=== PATIENT | female | born 1975 | race Hispanic/Latino ===

== ENCOUNTER 2018-01-09 12:57 | Emergency (ER) | payer SELFPAY ==
[2018-01-09 13:03] VITALS: O2SAT 100
[2018-01-09] MEDS ORDERED: Sodium Chloride 0.9% 1,000 ML IV STA (14:26)
--- NOTE | 2018-01-09 14:27 | ED PDOC ---
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 Patient reports she had frenulumectomy done this morning at 11:30, local anesthetic was used. She states she felt fine after, but developed dizziness [place] and felt the need to sit. Patient lost consciousness and hit head but woke up soon after. She states her symptoms have improved since. Patient reports no sweating, nausea , throat pain, but denies headache, vomiting, chest pain, current dizziness, difficulty breathing or any other medical complaints. She had a small bacteria infection two weeks ago and finished her antibiotics on Saturday. PMD: none provided. Past Medical History Reviewed: Historical Data, Nursing Documentation, Vital Signs Vital Signs: Last Vital Signs Temp 97.4 F L 01/09/18 13:00 Pulse 52 L 01/09/18 13:00 Resp 18 01/09/18 13:00 BP 90/50 L 01/09/18 13:00 Pulse Ox 100 01/09/18 13:00 - Medical History PMH: No Chronic Diseases - Surgical History Surgical History: Tonsillectomy - Family History Family History: States: Unknown Family Hx - Social History Current smoker - smoking cessation education provided: No Ex-Smoker (has not smoked in the last 12 months): No Alcohol: Occasional - Allergies Allergies/Adverse Reactions: Allergies Allergy/AdvReac Type Severity Reaction Status Date / Time No Known Allergies Allergy Verified 01/09/18 12:59 Review of Systems ROS Statement: Except As Marked, All Systems Reviewed And Found Negative Constitutional: Positive for: Sweats ENT: Positive for: Throat Pain Neurological: Positive for: Dizziness, Other (syncope) Physical Exam - Reviewed Nursing Documentation Reviewed: Yes Vital Signs Reviewed: Yes - Physical Exam Appears: Positive for: Non-toxic, No Acute Distress Head Exam: Positive for: ATRAUMATIC, NORMOCEPHALIC Skin: Positive for: Normal Color, Warm, Dry Eye Exam: Positive for: EOMI, Normal appearance, PERRL ENT: Positive for: Normal ENT Inspection Neck: Positive for: Normal, Painless ROM Cardiovascular/Chest: Positive for: Regular Rate, Rhythm. Negative for: Murmur Respiratory: Positive for: Normal Breath Sounds. Negative for: Respiratory Distress Gastrointestinal/Abdominal: Positive for: Normal Exam, Soft Back: Positive for: Normal Inspection Extremity: Positive for: Normal ROM (upper and lower) Neurologic/Psych: Positive for: Alert, foreign exchange trader II-XII, Oriented (x3), Gait (steady) . Negative for: Motor/Sensory Deficits - Laboratory Results Result Diagrams: 01/09/18 14:51 01/09/18 14:51 - ECG O2 Sat by Pulse Oximetry: 100 (RA) Pulse Ox Interpretation: Normal Medical Decision Making Medical Decision Making: Time: 13:31 Initial Impression: Syncopal episode likely due to vasovagal syncope Initial Plan: --CMP --Troponin --CBC with differentials --Glucose --NS --Zofran 4 mg IV Time: 16:10 --Patient refused CT (because she is not sure her insurance company will cover it) and labs results are benign. Patient states she is ready to go home. Patient is medically cleared for discharge home, diagnosis vasovagal syncope. pt tolerated po, states she is hungry. Patient is returning back to [place] in 2 days and will follow up with PMD there. Scribe Attestation: Documented by Brenda Mclean, acting as a scribe for Amna Sanchez MD Provider Scribe Attestation: All medical record entries made by the Scribe were at my direction and personally dictated by me. I have reviewed the chart and agree that the record accurately reflects my personal performance of the history, physical exam, medical decision making, and the department course for this patient. I have also personally directed, reviewed, and agree with the discharge instructions and disposition. Disposition - Clinical Impression Clinical Impression: Vasovagal syncope - Patient ED Disposition Is Patient to be Admitted: No Counseled Patient/Family Regarding: Studies Performed, Diagnosis, Need For Followup - Disposition Disposition: Routine/Home Disposition Time: 16:05 Condition: IMPROVED Additional Instructions: follow up with your doctor in 2 days stay hydrated return to the ED with any worsening or concerning symptoms Instructions: Vasovagal Response (DC) Forms: [employer] App ([place]ish)
[2018-01-09 15:04] LABS: BASO % 0.4 % (0.0-2.0); EOS % 0.3 % (0.0-4.0); LYMPH # 1.2 K/uL (1.0-4.3); MEAN CELL VOLUME 95.4 fl (81.0-99.0); MEAN CORPUSCULAR HEMOGLOBIN 33.1 pg (27.0-31.0); MEAN CORPUSCULAR HGB CONC 34.7 g/dL (33.0-37.0); MEAN PLATELET VOLUME 8.3 fl (7.2-11.7); MONO # 0.6 K/uL (0.0-0.8); MONO % 5.8 % (0.0-10.0); NEUT # 8.3 K/uL (1.8-7.0); NEUT % 81.5 % (50.0-75.0); RBC 4.25 Mil/uL (3.80-5.20); RED CELL DISTRIBUTION WIDTH 12.8 % (11.5-14.5); WHITE BLOOD COUNT 10.2 K/uL (4.8-10.8)
[2018-01-09 15:06] LABS: CALCIUM 9.7 mg/dL (8.4-10.2); GFR AFRICAN-AMERICAN > 60; GFR NON-AFRICAN AMERICAN > 60
[2018-01-09 15:21] LABS: ALB/GLOB RATIO 1.4 (1.0-2.1); ALBUMIN 4.9 g/dL (3.5-5.0); ALT/SGPT 13 U/L (9-52); AST/SGOT 39 U/L (14-36); BLOOD UREA NITROGEN 17 mg/dl (7-17)
[2018-01-09 16:23] VITALS: BP 114/71; PULSE 62; RESP 13; TEMP 97.7
== END 2018-01-09 16:21 | disposition home or self-care (01) ==
LOC: H.ER 12:57
DX: R55 Syncope and collapse (principal)